=== PATIENT | male | born 1970 | race African-American/Black ===

== ENCOUNTER 2017-11-22 17:37 | Inpatient (IN) | payer OTHER ==
[2017-11-22] VITALS (7 sets, daily range): BP systolic 172–211; BP diastolic 90–125
[~2017-11-22] VITALS: Ht 165.1 cm; Wt 101.6 kg
--- NOTE | ~2017-11-22 | EKG ---
[address] [address] ELECTROCARDIOGRAM REPORT Name: MONICO BOYKIN Room #: 355-P ADM IN M.R.#: [id number] Admission: 11/22/17 Attend Phys: Jesus Lugo MD Discharge: Date of : 68 Report #: [id number] THIS REPORT FOR: //name// [facility] ED Test Date: 2017-11-22 Test Time: 18:04:01 Pat Name: MONICO BOYKIN Department: Room: 355 Gender: M Data Developer: JALEEL : 1970 Requested By: Barney Weaver Order Number: [id number] MD: Preston Casarez Measurements Intervals [place] Rate: 88 P: 35 IN: 158 QRS: -25 QRSD: 104 T: 82 QT: 368 QTc: 446 Interpretive Statements Sinus rhythm Borderline left axis deviation Borderline repolarization abnormality No previous ECG available for comparison Electronically Signed On 11-23-2017 13:50:38 CDT by Preston Casarez [email or web address] <ELECTRONICALLY SIGNED> By: Preston Casarez MD, [facility] 11/23/17 1350 1804 03 Preston Casarez MD, FACC /EPI
--- NOTE | ~2017-11-22 | 2DMMODE ---
[facility] [address] [place] [address] 2 D/M-MODE ECHOCARDIOGRAM Name: MONICO BOYKIN Room #: 355-P ADM IN M.R.#: [id number] Admission: 11/22/17 Attend Phys: Riley Dozier Discharge: Date of : 68 Date of Service: 11/24/17 1208 Report #: [id number] THIS REPORT FOR: //name// APPROVED REPORT Study performed: 11/24/2017 11:23:58 EXAM: Comprehensive 2D, Doppler, and color-flow Echocardiogram Patient Location: Echo lab Room #: 355 Status: routine BSA: 2.08 HR: 77 bpm BP: 183/99 mmHg Rhythm: NSR Other Information Study Quality: Good Indications TIA. HTN urgency Echo Enhancing Agent Indication: Rule out Shunt Agent(s) / Amount(s) Used: Agitated Saline 6 cc 2D Dimensions RVDd: 33.27 mm LVEF(%): 62.26 (>50%) IVSd: 11.82 (7-11mm) LVOT Diam: 20.52 (18-24mm) LVDd: 53.86 mm PWd: 12.40 (7-11mm) Ascending Ao: 33.23 (22-36mm) LVDs: 35.61 (25-40mm) Aortic Root: 31.35 mm Jonas's LVEF: 62.26 % Volumes Left Atrial Volume (Systole) Single Plane 4CH: 63.28 mL Single Plane 2CH: 71.90 mL LA ESV Index: 34.00 mL/m2 Aortic Valve AoV Peak Edson.: 1.58 m/s AO Peak Gr.: 10.01 mmHg LVOT Max P.64 mmHg LVOT Max V: 1.38 m/s AGUILAR Vmax: 2.89 cm2 [facility] [place] [address] 2 D/M-MODE ECHOCARDIOGRAM Name: MONICO BOYKIN Room #: 355-P [facility] IN M.R.#: [id number] Admission: 11/22/17 Attend Phys: Riley Dozier Discharge: Date of : 68 Date of Service: 11/24/17 1208 Report #: [id number] Mitral Valve E/A Ratio: 1.2 MV Decel. Time: 204.26 ms MV E Max Edson.: 0.97 m/s MV A Edson.: 0.81 m/s MV PHT: 59.24 ms IVRT: 69.20 ms Pulmonary Valve PV Peak Edson.: 1.39 m/s PV Peak Gr.: 7.72 mmHg Pulmonary Vein P Vein S: 0.70 m/s P Vein A: 0.24 m/s P Vein D: 0.40 m/s P Vein A Dur.: 193.8 msec P Vein S/D Ratio: 1.75 Tricuspid Valve TR Peak Edson.: 2.15 m/s RAP Estimate: 5.00 mmHg TR Peak Gr.: 18.57 mmHg PA Pressure: 24.00 mmHg Left Ventricle The left ventricle is normal size. There is normal LV segmental wall motion. Mild concentric left ventricular hypertrophy. Left ventricular systolic function is normal. LVEF is 60-65%. Moderate diastolic dysfunction is present (pseudonormal filling). Right Ventricle The right ventricle is normal size. The right ventricular systolic function is normal. Atria Left atrium is at the upper limits of normal. Injection of bubbles documented no interatrial shunt. The right atrium size is normal. Aortic Valve The aortic valve is normal in structure. No aortic regurgitation is present. There is no aortic valvular stenosis. Mitral Valve The mitral valve is normal in structure. There is no mitral valve regurgitation noted. No evidence of mitral valve stenosis. Tricuspid Valve [facility] [address] [email or web address] [address] 2 D/M-MODE ECHOCARDIOGRAM Name: MONICO BOYKIN Room #: 355-P ADM IN M.R.#: [id number] Admission: 11/22/17 Attend Phys: Riley Dozier Discharge: Date of : 68 Date of Service: 11/24/17 1208 Report #: [id number] The tricuspid valve is normal in structure. Trace tricuspid regurgitation. Estimated PAP is 25mmHg. Pulmonic Valve Pulmonic valve is not well visualized. Trace pulmonic regurgitation. Great Vessels The aortic root is normal in size. The ascending aorta is normal in size. IVC is normal in size and collapses >50% with inspiration. The pulmonary artery is normal. Pericardium There is no pericardial effusion. <Conclusion> The left ventricle is normal size. Mild concentric left ventricular hypertrophy. Left ventricular systolic function is normal. Moderate diastolic dysfunction is present (pseudonormal filling). The right ventricle is normal size. Left atrium is at the upper limits of normal. Injection of bubbles documented no interatrial shunt. The aortic valve is normal in structure. There is no mitral valve regurgitation noted. <ELECTRONICALLY SIGNED> By: Bhanu Mcgarry MD 11/24/178 07 07 Bhanu Mcgarry MD /INF
[2017-11-22 18:23] LABS: HEMATOCRIT 47.1 % (42.0-52.0); MCH 29.1 pg (26.0-34.0); MCV 85.6 fL (80.0-100.0); RBC 5.5 mil/uL (4.50-6.00); RDW 13.4 % (10.5-14.5)
[2017-11-22 18:36] LABS: APTT 27.8 Seconds (24.5-32.8); PROTIME 10.4 Seconds (9.3-11.4)
[2017-11-22 18:37] LABS: POTASSIUM 3.7 mmol/L (3.5-5.1)
[2017-11-22 18:46] LABS: TOTAL BILIRUBIN 0.7 mg/dL (<0.1-1.0); TOTAL PROTEIN 8.4 g/dL (6.4-8.2)
[2017-11-23 03:52] VITALS: BP 202/96
[2017-11-23 06:10] LABS: CHOLESTEROL 288 mg/dL (<200); HDL CHOLESTEROL 22 mg/dL (>40); TC:HDL 13.1 Ratio (Not establshd); TRIGLYCERIDE 568 mg/dL (<150); VLDL 114 mg/dL (<40)
[2017-11-23 07:10] VITALS: BP 195/100
[2017-11-23 07:52] VITALS: BP 193/84
[2017-11-23 11:51] VITALS: BP 175/89
[2017-11-23 15:58] VITALS: BP 157/50
[2017-11-23 20:00] VITALS: BP 163/84
[2017-11-24 00:11] VITALS: BP 161/83
[2017-11-24 02:05] LABS: GLYCOHEMOGLOBIN (HGB A1C) 6.9 % (4.8-5.6)
[2017-11-24 03:50] VITALS: BP 167/91
[2017-11-24 07:35] VITALS: BP 183/99
[2017-11-24] MEDS ORDERED: ATORVASTATIN CA40 MG PO (08:37)
[2017-11-24] MEDS ORDERED: ASPIR 8181 MG PO (08:38)
[2017-11-24] MEDS ORDERED: LISINOPRIL10 MG PO (08:38)
[2017-11-24] MEDS ORDERED: AMLODIPINE BESYL5 M1 PO (08:40)
[2017-11-24 11:13] VITALS: BP 185/90
[2017-11-24 14:10] VITALS: BP 185/90
== END 2017-11-24 15:19 | disposition home or self-care (01) | DRG 305 ==
LOC: ER 17:37 → 3W 18:51 → EROBS 18:51 → 3W 20:28
PROVIDERS: Emergency Medicine; Nurse Practitioner Acute Care
DX: I10 Essential (primary) hypertension (principal); I16.0 Hypertensive urgency; E78.5 Hyperlipidemia, unspecified; E11.65 Type 2 diabetes mellitus with hyperglycemia; F17.200 Nicotine dependence, unspecified, uncomplicated; Z71.6 Tobacco abuse counseling; Z79.82 Long term (current) use of aspirin
CPT/HCPCS: 10879